=== PATIENT | male | born 1950 | race Caucasian/White ===

== ENCOUNTER 2020-04-28 17:16 | Emergency (ER) | payer BC, SELFPAY ==
[2020-04-28 17:17] VITALS: BP 140/89; PULSE 95; RESP 22; TEMP 36.6; O2SAT 95; BMI 37.2
--- NOTE | 2020-04-28 17:39 | EKG12_ITS ---
Test Reason : CP Blood Pressure : / mmHG Vent. Rate : 095 BPM Atrial Rate : 095 BPM P-R Int : 164 ms QRS Dur : 082 ms QT Int : 366 ms P-R-T Axes : 042 -12 022 degrees QTc Int : 459 ms Normal sinus rhythm Normal ECG Confirmed by LISA MCDONALD, CARTER ([id number]), online editor ROBIN CHAVIS ([id number]) on 05/04/2020 8:51:18 AM Referred By: ISHMAEL Confirmed By:CARTER GONZALEZ MD
--- NOTE | 2020-04-28 17:45 | RAD_ITS ---
STUDY: X-RAY CHEST REASON FOR EXAM: Male, 69 years old. CHEST PAIN X3 DAYS, SOB, PAIN IN LEFT ARM TECHNIQUE: Single AP portable view of the chest. COMPARISON: None. FINDINGS: The lungs are clear and expanded. There is no demonstrated pleural abnormality. Normal size heart. Normal mediastinum and blaine. Normal visualized pulmonary arteries. Normal visualized aortic arch and descending thoracic aorta. Normal visualized thoracic spine. Normal visualized ribs, clavicles, and shoulders. There is no demonstrated abnormality of the visualized soft tissue structures of the upper abdomen. RAD/Chest 1 View (Portable) IMPRESSION: Normal x-ray examination of the chest. Electronically Signed: Brenden Hamilton MD at 18:01 EDT , Service support ,
[2020-04-28 18:00] VITALS: O2SAT 89
[2020-04-28] MEDS: Aspirin 81 MG TAB.CHEW 324 MG PO (18:02)
[2020-04-28 18:04] LABS: Absolute Lymphocyte Count 3.25 X10^3/uL (0.83-4.51); Basophil# 0.07 X10^3/uL; Basophil% 0.7 % (0-1); Eosinophil# 0.18 X10^3/uL; Eosinophils% 1.8 % (0-5); Hematocrit 49.1 % (40-54); Hemoglobin 16.1 g/dL (13.0-16.5); Lymphocyte # 3.25 X10^3/ul (4.0); Lymphocyte % 32.9 % (19-41); Mean Corp Hgb Conc 32.8 g/dL (32-36); Mean Corpuscular Volume 103.6 fL (80-94); Mean Platelet Vol. 10.5 fl (6.2-12.0); Monocyte# 1.31 X10^3/uL; Monocyte% 13.3 % (0-10); NRBC Flagged by Analyzer 0 % (0-5); Neutrophil # 5.03 X10^3/uL (2.7-7.7); Platelet Count 282 K/mm3 (150-450); RBC Distribution Width CV 15.1 % (11.6-14.6); Red Blood Count 4.74 M/mm3 (4.6-6.2); White Blood Count 9.9 K/mm3 (4.4-11.0)
[2020-04-28 18:05] VITALS: O2SAT 93
[2020-04-28 18:09] LABS: Anion Gap 5 (5-15); BUN 14 mg/dL (7-18); BUN/Creat Ratio 14.3 RATIO (10-20); Chloride 104 mmol/L (98-107); Creatinine, Serum 0.98 mg/dL (0.70-1.30); EST Glomerular Filtration Rate 80 mL/min (>60); Est Glom Filt Rate - Afr Amer 97 mL/min (>60); Estimated Creatinine Clearance 75.88 ml/min; Glucose 115 mg/dL (74-106); Potassium 3.9 mmol/L (3.5-5.1); Sodium Level 138 mmol/L (136-145)
--- NOTE | 2020-04-28 18:21 | ED.VIS.GEN ---
History of Present Illness Chief Complaint: Chest Pain Informant: Patient, Significant Other Onset: Month(s) - Onset 6 months ago Context: Sudden Onset Timing: Intermittent Quality: Anterior left chest described as fullness until today. Location: Anterior chest with radiation to left arm today Current Severity: Mild Maximum Severity: Moderate Worsened by: Nothing Relieved by: Nothing Associated Symptoms: Radiation left arm today Narrative: Patient is a 69-year-old male with history obstructive sleep apnea who is not compliant with the use of his CPAP/BiPAP machine. His episodes of discomfort, at rest. They are not exertional related. They are not related to food or change in position. There is no history of trauma. He denies history of PE or DVT. He denies leg pain, swelling discoloration. Father had an RI at the age of 80. Mother had heart problems. He denies black or maroon stool. He denies food intolerance. He denies sour taste in the back of his throat or symptoms suggestive of GERD. Prior similar symptoms: Yes Recent Illness/Hospitalization: No - Past Medical History (1) Obstructive sleep apnea Status: Acute Past Medical History - Allergies and Home Meds Allergies/Adverse Reactions: Allergies morphine Allergy (Verified 04/28/20 17:20) TROUBLES BREATHING Primary Care Physician: Candido Wall MD [Primary Care Provider] - Prior records reviewed: Yes Surgical History: no surgical history Lives: Spouse/ Significant Other Smoking Status: Never smoker - He states he smoked at the age of 15. Alcohol: None Drugs: None Review of Systems General: Reports: Weight loss - Loss that is intentional. Denies: Chills, Fever, Sweats Eyes: Denies: Visual changes - bilaterally, Blurred Vision - bilaterally ENT: Denies: Rhinorrhea, Sore throat Cardiovascular: Reports: Chest pain. Denies: Palpitations Respiratory: Denies: Dyspnea, Cough, Dyspnea on exertion Gastrointestinal: Denies: Abdominal pain, Nausea, Vomiting, Diarrhea, Melena, Hematochezia Genitourinary: Denies: Dysuria, Hematuria, Frequency Musculoskeletal: Denies: Myalgias, Arthralgias, Neck pain, Back pain, Swelling, Extremity Pain Skin: Denies: Rash, Wounds Neurological: Denies: Headache, Weakness, Numbness Endocrine: Denies: Polyuria, Polydipsia Hematologic: Denies: Easy bruising, Easy bleeding Physical Exam Vital Signs/Narrative: Vital Signs Temp Pulse Resp BP Pulse Ox 04/28/20 18:05 93 04/28/20 18:00 89 04/28/20 17:17 97.9 F 95 22 H 140/89 H 95 Inital Vital Signs reviewed: Yes General: Well nourished, Well developed, No Acute Distress Head: Normocephalic, Atraumatic Eyes: Perrl, EOMI ENT: Moist mucous membranes, No rhinorrhea Neck: Supple, Nontender Cardiovascular: Regular rate, Regular rhythm, No murmurs, Normal S1, Normal S2 Respiratory: No distress, CTA bilaterally, Chest nontender Abdomen: Soft, Nontender, Nondistended, Normal bowel sounds, No masses Back: Nontender, Normal Inspection Extremities: Nontender, Edema - 1 to 2 mm pitting edema, - - There is no asymmetry, swelling, discoloration, leg vein distention, palpable cords or tenderness along the distribution of the deep venous system. Skin: Normal color, No rash Neurological: Alert, Oriented x3, Cranial nerves II-XII grossly intact, Normal Strength, Normal Sensation, Normal DTR Psychological: Normal affect, Normal Mood Diagnostic/Tx/Re-eval Chest X-Ray - ED: 1 View, Read by ED Physician, Normal, Lungs, Mediastinum, Bony Structures, No Acute Disease, Chronic Changes Impressions Chest X-Ray 04/28/20 17:45 IMPRESSION: Normal x-ray examination of the chest. Electronically Signed: Brenden Hamilton MD at 18:01 EDT , Service support , 04/28/20 17:45 Chest 1 View (Portable) [RAD] Stat Laboratory Results 04/28/20 04/28/20 17:30 17:30 WBC 9.9 RBC 4.74 Hgb 16.1 Hct 49.1 MCV 103.6 H MCH 34.0 H MCHC 32.8 RDW Std Deviation 58.0 H RDW Coeff of [place] 15.1 H Plt Count 282 MPV 10.5 Immature Gran % (Auto) 0.300 Neut % (Auto) 51.0 Lymph % (Auto) 32.9 [place] % (Auto) 13.3 H Eos % (Auto) 1.8 Baso % (Auto) 0.7 Absolute Neuts (auto) 5.0 Absolute Lymphs (auto) 3.25 Nucleated RBC % 0 Sodium 138 Potassium 3.9 Chloride 104 Carbon Dioxide 29.0 Anion Gap 5 BUN 14 Creatinine 0.98 Estim Creat Clear Calc 75.88 Est GFR (MDRD) Af Amer 97 Est GFR (MDRD) Non-Af 80 BUN/Creatinine Ratio 14.3 Glucose 115 H Calcium 9.0 Troponin I < 0.015 3 of 6 months of pain normal troponin normal work-up we will have him follow-up with his primary care physician Dr. Rey contact. - EKG Initial EKG Interpretation: Sinus Rhythm - Sinus rhythm with a ventricular rate of 95. UT interval is 164 ms. QRS duration 82 ms. QT duration 366 ms. [place] is normal. The EKG is normal. - Medical Decision Making Presents with atypical chest pain. This may represent musculoskeletal pain, GERD, atypical presentation of cardiac ischemia, reflux, peptic ulcer disease. EKG, chest x-ray and appropriate labs were obtained to evaluate patient's presentation. Patient was informed of his test results. He was informed the cause of his anterior left chest pain is unknown. He was told there is no evidence that he has any cardiac ischemia. Based on history physical he does not have concern for pulmonary embolus, aortic dissection etc. This may related to his noncompliance with his CPAP machine for treatment of his obstructive sleep apnea. ED Disposition - Plan for ED Patient: Disposition: Home or Assisted Living Diagnosis: Left-sided chest pain, Shortness of breath at rest, History of obstructive sleep apnea Instructions: ED Chest Pain Atypical Unkn Cause Referrals: Candido Wall MD [Primary Care Provider] - 5-7 Days
[2020-04-28 18:50] VITALS: BP 122/79; RESP 54; TEMP -7.7; TEMP 18; O2SAT 99
== END 2020-04-28 18:55 | disposition home or self-care (01) ==
PROVIDERS: Emergency Provider Emergency Medicine; PCP Family Medicine
DX: R07.89 Other chest pain (principal); R06.02 Shortness of breath; G47.33 Obstructive sleep apnea (adult) (pediatric); Z82.49 Family history of ischemic heart disease and other diseases of the circulatory system; Z91.19 Patient's noncompliance with other medical treatment and regimen; Z88.5 Allergy status to narcotic agent
CPT/HCPCS: 71045; 80048; 84484; 85025; 93005; 99285; A4216

== ENCOUNTER → 2020-11-17 11:55 | Outpatient (CLI) | payer BC, SELFPAY ==
--- NOTE | 2020-11-17 12:00 | EKG12_ITS ---
Test Reason : PRE OP Blood Pressure : / mmHG Vent. Rate : 078 BPM Atrial Rate : 078 BPM P-R Int : 172 ms QRS Dur : 080 ms QT Int : 382 ms P-R-T Axes : 040 000 042 degrees QTc Int : 435 ms Sinus rhythm with Premature atrial complexes Otherwise normal ECG Confirmed by ROSY MCDONALD, LISA ([id number]), publications editor FABIAN MORE ([id number]) on 11/18/2020 1:53:19 PM Referred By: Shayne Deras Confirmed By:LISA GALLEGOS MD
[2020-11-17 12:31] LABS: Hematocrit 48.6 % (40-54); Hemoglobin 15.8 g/dL (13.0-16.5); Mean Corp Hgb Conc 32.5 g/dL (32-36); Mean Corpuscular Volume 104.5 fL (80-94); Mean Platelet Vol. 10.2 fl (6.2-12.0); Platelet Count 253 K/mm3 (150-450); RBC Distribution Width CV 14.6 % (11.6-14.6); RBC Distribution Width SD 56.7 fl (35.1-43.9); Red Blood Count 4.65 M/mm3 (4.6-6.2); White Blood Count 7.7 K/mm3 (4.4-11.0)
[2020-11-17 13:18] LABS: Anion Gap 4 (5-15); BUN 10 mg/dL (7-18); BUN/Creat Ratio 9.8 RATIO (10-20); Calcium,Total 9.1 mg/dL (8.5-10.1); Chloride 105 mmol/L (98-107); Creatinine, Serum 1.02 mg/dL (0.70-1.30); EST Glomerular Filtration Rate 76 mL/min (>60); Est Glom Filt Rate - Afr Amer 92 mL/min (>60); Glucose 118 mg/dL (74-106); Sodium Level 138 mmol/L (136-145)
== END ==
PROVIDERS: PCP Family Medicine; Referring Provider Physician Assistant; Visit Provider Physician Assistant
DX: Z11.59 Encounter for screening for other viral diseases (principal); Z01.818 Encounter for other preprocedural examination; Z01.810 Encounter for preprocedural cardiovascular examination
CPT/HCPCS: 36415; 80048; 85027; 87635; 93005; C9803; U0005; U0003